=== PATIENT | male | born 1975 | race Caucasian/White ===

== ENCOUNTER 2017-02-25 15:30 | Emergency (ER) | payer OTHER ==
[2017-02-25 16:31] LABS: BASO # 0.1 10_X3_uL (0.0-0.1); BASO % 0.2 % (0.2-1.2); EOS # 0.1 10_X3_uL (0.0-0.5); EOS % 0.5 % (0.8-7.0); GRAN # 18.8 10_X3_uL (1.8-5.4); GRAN % 85.4 % (34.0-67.9); HEMATOCRIT 43.5 % (40-51); HEMOGLOBIN 15.3 g/dL (13.7-17.5); LYMPH # 2.1 10_X3_uL (1.3-3.6); LYMPH % 9.5 % (21.8-53.1); MEAN CORPUSCULAR HEMOGLOBIN 30.4 pg (27.0-33.0); MEAN CORPUSCULAR HGB CONC 35.2 g/dL (32.0-36.0); MEAN CORPUSCULAR VOLUME 86.3 fL (79-92); MEAN PLATELET VOLUME 11.2 fl (7.5-11.5); MONO % 4.4 % (5.3-12.2); PLATELET COUNT 316 x10_3/uL (163-337); RED BLOOD COUNT 5.04 x10_6/uL (4.6-6.1); RED CELL DISTRIBUTION WIDTH 13.6 % (11.6-14.4)
[2017-02-25 16:38] LABS: WHITE BLOOD COUNT 22.1 x10_3/uL (4.2-9.1)
[2017-02-25 16:49] LABS: ALBUMIN 4.7 gm/dL (3.4-5.0); ALKALINE PHOSPHATASE 52 U/L (50-136); ALT/SGPT 21 U/L (7.53-40.17); AST/SGOT 19 U/L (6.66-35.34); BILIRUBIN,TOTAL 0.65 mg/dL (0.0-1.0); BLOOD UREA NITROGEN 12 mg/dL (7-18); CALCIUM 9.4 mg/dL (8.7-10.7); CARBON DIOXIDE 25 mmol/L (21-32); CREATININE 0.9 mg/dL (0.6-1.3); GLUCOSE,RANDOM 130 mg/dL (70-99); LIPASE 30 U/L (6.75-60.75); POTASSIUM 3.2 mmol/L (3.5-5.1); SODIUM 133 mmol/L (136-145); TOTAL PROTEIN 7.9 gm/dL (6.4-8.2)
== END 2017-02-25 19:40 | disposition short-term general hospital (02) ==
LOC: ER 15:30
PROVIDERS: General Practice
DX: K20.9 Esophagitis, unspecified (principal); R11.2 Nausea with vomiting, unspecified; Z90.49 Acquired absence of other specified parts of digestive tract; I25.10 Atherosclerotic heart disease of native coronary artery without angina pectoris; I10 Essential (primary) hypertension; K21.9 Gastro-esophageal reflux disease without esophagitis; K44.9 Diaphragmatic hernia without obstruction or gangrene; Z79.899 Other long term (current) drug therapy; Z79.82 Long term (current) use of aspirin; Z79.02 Long term (current) use of antithrombotics/antiplatelets
CPT/HCPCS: 36415; 80053; 83690; 85025; 96374; 96375; 99070; 99285-25; J1170